=== PATIENT | male | born 1995 | race Caucasian/White ===

== ENCOUNTER 2017-05-29 00:27 | Emergency (ER) | payer BC ==
[~2017-05-29] VITALS: Ht 195.6 cm; Wt 101.9 kg
[2017-05-29] MEDS ORDERED: RISP3TAB24 PO (00:42)
[2017-05-29] MEDS ORDERED: MAALOX/HYOSCYAMINE/LIDOCAINE 45 ML BTL PO ONE (01:00)
[2017-05-29] MEDS ORDERED: MAALOX/HYOSCYAMINE/LIDOCAINE 45 ML BTL ONE (01:12)
[2017-05-29 01:54] VITALS: BP 123/76
== END 2017-05-29 01:57 | disposition home or self-care (01) ==
LOC: ED 01:40
DX: R07.2 Precordial pain (principal)
CPT/HCPCS: 71020; 93005; 99284

== ENCOUNTER 2018-09-21 21:35 | Emergency (ER) | payer BC ==
[~2018-09-21] VITALS: Ht 198.1 cm; Wt 110.8 kg
[~2018-09-21 21:35] MED LIST: RISP3TAB24 PO
[2018-09-21 21:41] VITALS: BP 136/86
--- NOTE | 2018-09-21 22:33 | NUR ---
pt called to room from lobby
--- NOTE | 2018-09-21 23:31 | NUR ---
MD in for recheck, pt agrees to plan - discharge, verbalized understanding of importance of returning to ed for any worsening/concerning s/s
== END 2018-09-21 23:46 | disposition home or self-care (01) ==
LOC: ED 23:30
DX: R09.89 Other specified symptoms and signs involving the circulatory and respiratory systems (principal)
CPT/HCPCS: 71046; 74021; 99283